=== PATIENT | male | born 1950 | race Caucasian/White ===

== ENCOUNTER 2016-09-25 08:18 | Day surgery (SDC) | payer BC, MEDICARE ==
[~2016-09-25] VITALS: Ht 165.1 cm; Wt 68.8 kg
[~2016-09-25 08:18] MED LIST: AMLO10TA2 PO; ASPI-730 PO; CHOL200026 PO; ENAL20TA76 PO; FISH1CAP29 PO; LIDOCAINE 1% (10mg/ml) 2ml SDV INJ ONE; LR 1,000 ML IV SCH; LUTE10TA2 PO; NIAC500C9 PO
--- OUTSIDE RECORDS SUMMARY | 2016-09-25 08:23 | XMS REPORT | Continuity of Care Document ---
Author Author [facility] Organization [facility] Address Unknown Phone Unavailable Support Name Relationship Address Phone VIRGINIA HANKINS FACS, MD Caregiver [address] [place] [address] [place] [address] [phone] FLORESITA HOOKS MD Caregiver [address] [place] [address] [place] [address] [phone] IRIS COLBERT "JESSICA" Next Of Kin [address] [facility] [place] [id number] Insurance Providers Payer Name Policy Number Subscriber Name Relationship [facility] [id number] Iris Colbert Spouse Advance Directives Directive Response Recorded Date/Time Advanced Directives Type None 11/27/13 3:34pm Dr Gan Resuscitation Status Full Code 11/28/13 1:16pm Problems No known problems or medical conditions. Medications Medication Dose Route Sig Days/Qty Instructions Order Date Discontinued Date Status Aspirin 325 Mg PO .5 tab d 11/27/13 Active Enalapril Maleate 20 Mg PO TWICE A DAY 11/27/13 Active Fish Oil/[place]-3 Fatty Acids 1 Cap PO DAILY 11/27/13 Active Lutein 10 Mg PO DAILY 11/27/13 Active Metoprolol Succinate 12.5 Mg PO TWICE A DAY 11/27/13 Active Niacin 500 Mg PO DAILY 11/27/13 Active Sawpalmtofrtxt/Zinc Picolinate 1 Cap PO DAILY 11/27/13 Active Cholecalciferol (Vitamin D3) 2,000 Unit PO DAILY 11/27/13 Active Vitamin E Mixed 400 Unit PO DAILY 11/27/13 Active Social History Social History Problem Response Recorded Date/Time Smoking Status Never smoker 12/01/2013 10:31am Chewing Tobacco Status No 12/01/2013 10:31am Hx Substance Use No 12/01/2013 10:31am Hx Alcohol Use No 12/01/2013 10:31am Has the pt used tobacco in the last 12 months No 12/01/2013 10:31am Hospital Discharge Instructions No hospital discharge instructions. Plan of Care No plan of care. Functional Status No functional status results. Allergies, Adverse Reactions, Alerts Allergen Type Severity Reaction Status Last Updated Penicillin Allergy Unknown Active 11/27/13 Immunizations Name Given Type Hx Influenza Vaccination Y feb 2013 Historical Hx Pneumococcal Vaccination Y 8 years ago Historical Hx Influenza Vaccination Y feb 2013 Historical Vital Signs Acute Vital Signs Vital Response Date/Time Temperature (Fahrenheit) 98.4 deg F (96.8 - 99.1) Temperature (Calculated Celsius) 36.90424 degrees C (36.0 - 37.3) Temperature Source Temporal Pulse Rate (adult) 60 bpm (60 - 100) Respiratory Rate 16 breaths/min (10 - 20) O2 Sat by Pulse Oximetry 98 % (90 - 100) Blood Pressure 170/83 mm Hg Blood Pressure Source Automatic Cuff Height 5 ft 5 in Weight 134 lb Body Mass Index 22.0 kg/m^2 Results No known relevant diagnostic tests, laboratory data and/or discharge summary. Procedures Procedure Status Date Provider(s) Inguinal hernia repair completed 12/01/13 VIRGINIA HANKINS MD, FACS, CWS
--- OUTSIDE RECORDS SUMMARY | 2016-09-25 08:23 | XMS REPORT | Continuity of Care Document ---
Author Author [facility] Organization [facility] Address Unknown Phone Unavailable Allergies Active Description Code Type Severity Reaction Onset Reported/Identified Relationship to Patient Clinical Status Yes penicillin NKMA N/A N/A 09/11/2013 Medications Problems Procedures Results Test Result Range Urine Drug Screen - 04/01/16 13:51 Tricyclics Not Detected NA Amph/Meth/Ecstasy Negative NA Barbiturates Negative NA Benzodiazepine Negative NA Cannabinoid Negative NA Cocaine Negative NA EDDP (Methadone met.) Negative NA Opiate Negative NA Phencyclidine (PCP) Negative NA Metanephrines, Fract., Random - 04/01/16 13:51 Creatinine 15 mg/dL Metanephrine/Creatinine 120 mcg/g Cr Normetanephrine/Creat 287 mcg/g Cr Tot. Metanephrine/Creat 407 mcg/g Cr Troponin - 04/01/16 17:42 Troponin <0.05 ng/mL <0.06 Basic Metabolic Panel (BMP) - 04/02/16 04:22 Anion Gap 6 NA 3-20 BUN 8 mg/dL 4-20 Calcium 8.8 mg/dL 8.6-10.0 Chloride 103 mEq/L 99-109 CO2 24 mEq/L 22-32 Creatinine 0.67 mg/dL 0.64-1.27 Glucose 99 mg/dL 70-100 Potassium 3.7 mEq/L 3.6-5.1 Sodium 133 mEq/L 136-144 eGFR - 04/02/16 04:22 eGFR >60 NA >60 CBC With Platelet No Differential - 04/02/16 04:22 HCT 43.5 % 42.0-52.0 HGB 14.5 g/dL 14.0-18.0 MCH 29.0 pg 27.0-32.0 MCHC 33.3 g/dL 32.0-36.0 MCV 87.0 fL 82.0-99.0 MPV 9.4 fL 9.4-12.3 Platelet Count 213 K/uL 150-400 RBC 5.00 10*6/uL 4.60-6.20 RDW 14.2 % 11.5-14.5 WBC 8.6 K/uL 4.8-10.8 CBC With Platelet No Differential - 04/03/16 04:05 HCT 43.6 % 42.0-52.0 HGB 14.5 g/dL 14.0-18.0 MCH 28.9 pg 27.0-32.0 MCHC 33.3 g/dL 32.0-36.0 MCV 86.9 fL 82.0-99.0 MPV 9.1 fL 9.4-12.3 Platelet Count 210 K/uL 150-400 RBC 5.02 10*6/uL 4.60-6.20 RDW 13.9 % 11.5-14.5 WBC 9.2 K/uL 4.8-10.8 Basic Metabolic Panel (BMP) - 04/03/16 04:05 Anion Gap 7 NA 3-20 BUN 18 mg/dL 4-20 Calcium 9.0 mg/dL 8.6-10.0 Chloride 96 mEq/L 99-109 CO2 26 mEq/L 22-32 Creatinine 0.79 mg/dL 0.64-1.27 Glucose 104 mg/dL 70-100 Potassium 3.4 mEq/L 3.6-5.1 Sodium 129 mEq/L 136-144 Magnesium - 04/03/16 04:05 Magnesium 1.9 mg/dL 1.8-2.5 eGFR - 04/03/16 04:05 eGFR >60 NA >60 Basic Metabolic Panel (BMP) - 04/13/16 10:45 Anion Gap 10 NA 3-20 BUN 15 mg/dL 8-26 Calcium 9.7 mg/dL 8.9-10.5 Chloride 104 mEq/L 99-111 CO2 26 mEq/L 23-31 Creatinine 0.75 mg/dL 0.72-1.25 Glucose 95 mg/dL 70-99 Potassium 4.1 mEq/L 3.5-5.2 Sodium 140 mEq/L 135-144 eGFR - 04/13/16 10:45 eGFR >60 mL/min >60 Encounters ACCT No. Visit Date/Time Discharge Status Pt. Type Provider Facility Loc./Unit Complaint [id number] 07/14/2013 14:04:00 07/14/2013 23 :59:59 CLS Outpatient
--- OUTSIDE RECORDS SUMMARY | 2016-09-25 08:23 | XMS REPORT | Referral Summary ---
Author Author [facility] Organization [facility] Address Unknown Phone Unavailable Care Team Providers Care Family Development Specialist Name Role Phone Linnea Wild Primary Care Physician [phone] Encounter Date(s): 04/13/16 - 04/13/16 [facility] [address] [place] [address]- Discharge Diagnosis: Left shoulder pain Discharge Diagnosis: Localized swelling, mass or lump of neck Discharge Diagnosis: Hypertension Discharge Disposition: 01-Home or Self Care Attending Physician: Steffany Herrera PA-C Admitting Physician: Steffany Herrera PA-C Vital Signs Most recent to 1 oldest [Reference Range]: Peripheral Pulse 60 bpm Rate [60-100 bpm] (04/13/16 10:18 AM) Respiratory Rate 18 br/min [14-20 br/min] (04/13/16 10:18 AM) Blood Pressure 142/80 mmHg [90-140/60-90 mmHg] *HI* (04/13/16 10:18 AM) Problem List Condition Effective Dates Status Health Status Informant At risk for Active injury(Confirmed)1 BPH (benign Active prostatic hypertrophy)(Confirm ed) Dyslipidemia(Confirm Active ed) Bilateral epididymal Active cysts(Confirmed) Hyperlipidemia(Confi Active rmed) Hypertension(Confirm Active ed) Nephrolithiasis(Conf Active irmed)2 Left Active varicocele(Confirmed ) Tissue perfusion Active alteration(Confirmed )3 1Problem added automatically by system based on initiation of Risk for Injury Plan of Care 2pass spontaneously 3Problem added automatically by system based on initiation of Tissue Perfusion Cerebral Plan of Care Allergies, Adverse Reactions, Alerts Substance Reaction Severity Status penicillin Active Medications amLODIPine 10 mg oral tablet 10 mg 1 tabs, Oral, Daily, # 90 tabs, 1 Refill(s), Pharmacy: [facility], 1 tabs Oral Daily Start Date: 04/13/16 Status: Ordered aspirin 325 mg oral tablet 162.5 mg 0.5 tabs, Oral, Daily, may resume only after bruising and swelling resolved and ok with PCP, 0 Refill(s) Start Date: 04/01/16 Status: Ordered enalapril 20 mg oral tablet 20 mg 1 tabs, Oral, BID, # 180 tabs, 1 Refill(s), Pharmacy: [facility], 1 tabs Oral BID Start Date: 11/01/15 Status: Ordered Fish Oil 1000 mg oral capsule 1 caps, Oral, Daily, 0 Refill(s) Start Date: 11/11/13 Status: Ordered lutein 10 mg, Oral, Daily, 0 Refill(s) Start Date: 11/11/13 Status: Ordered niacin 500 mg oral tablet 500 mg 1 tabs, Oral, Bedtime (once a day), 0 Refill(s) Start Date: 11/11/13 Status: Ordered Vitamin D3 2000 intl units oral tablet 2,000 Intl_Units 1 tabs, Oral, BID, 0 Refill(s) Start Date: 11/11/13 Status: Ordered Results Chemistry Most recent to 1 oldest [Reference Range]: Sodium Lvl [135-144 140 mEq/L mEq/L] (04/13/16 10:45 AM) Potassium Lvl 4.1 mEq/L [3.5-5.2 mEq/L] (04/13/16 10:45 AM) Chloride [99-111 104 mEq/L mEq/L] (04/13/16 10:45 AM) CO2 [23-31 mEq/L] 26 mEq/L (04/13/16 10:45 AM) AGAP [3-20] 10 (04/13/16 10:45 AM) BUN [8-26 mg/dL] 15 mg/dL (04/13/16 10:45 AM) Glucose Lvl [70-99 95 mg/dL mg/dL] (04/13/16 10:45 AM) Creatinine Lvl 0.75 mg/dL [0.72-1.25 mg/dL] (04/13/16 10:45 AM) eGFR [>60 mL/min] >60 mL/min 1 (04/13/16 10:45 AM) Calcium Lvl 9.7 mg/dL [8.9-10.5 mg/dL] (04/13/16 10:45 AM) 1Result Comment: Multiply eGFR results by 1.21 for race. Immunizations Vaccine Date Refusal Reason tetanus/diphth/pertuss (Tdap) adult/adol 12/26/11 hepatitis A adult vaccine 10/21/96 influenza virus vaccine, inactivated1 04/03/16 influenza virus vaccine, inactivated 03/01/15 influenza virus vaccine, live 02/28/12 poliovirus vaccine, inactivated 10/21/96 tetanus-diphth toxoids (Td) adult/adol 05/29/01 zoster vaccine live 02/28/12 1Result Comment: exp 10/12/2016 Procedures Procedure Date Related Diagnosis Body Site Collection of venous blood by venipuncture 04/13/16 Repair of inguinal hernia1 12/01/13 Colonoscopy2 09/24/06 Repair of inguinal hernia3 1954 Circumcision (at ) 1950 Vasectomy 1Right, with mesh 2diverticula, repeat in 10 years 3left Social History Social History Type Response Smoking Status Never smoker Assessment and Plan Extracted from: Title: Office Visit Note- Hospital Author: Steffany Herrera PA-C Date : 04/13/16 F/U, HTN Assessment/Plan Hypertension Will recheck BMP today, as his last labs on 04/03 showed some hyponatremia and hypokalemia. Pt is advised to continue on Enalapril and Norvasc for now at current doses. I did refill the Norvasc today. Continue to check the BP 1-2 times daily, and RTC if BP is consistently >150/90. If needed, could add the Metoprolol back on, but at the 12.5mg dose. Not sure if he would do well with a diuretic (HCTZ) as this was tried in the hospital, and it dropped his Na and K+. If no issues, advised to recheck in clinic in 3 months. Ordered: amLODIPine, 10 mg 1 tabs, Oral, Daily, # 90 tabs, 1 Refill(s), Pharmacy: [facility], 1 tabs Oral Daily Basic Metabolic Panel Trans [facility] 14 Day Disch 67092 Left shoulder pain D/w pt that he have a rotator cuff strain or partial tear. Could try PT if continuing with pain.Ptis to let us know. Ordered: [facility] 14 Day Disch 45564 Localized swelling, mass or lump of neck This is improving. Still unknown why this occurred. Continue to monitor the area. Ordered: Trans [facility] 14 Day Disch [id number]
--- OUTSIDE RECORDS SUMMARY | 2016-09-25 08:23 | XMS REPORT | Referral Summary ---
Author Author [facility] Organization [facility] Address Unknown Phone Unavailable Care Team Providers Care Ear Nose Throat Physician Name Role Phone Linnea Wild Primary Care Physician [phone] Encounter Date(s): 03/31/16 - 03/31/16 [facility] [address] [place] [address]- Discharge Diagnosis: Localized soft tissue swelling Discharge Diagnosis: Neck and shoulder pain Discharge Diagnosis: Accidental fall Discharge Disposition: 01-Home or Self Care Attending Physician: Steffany Herrera PA-C Admitting Physician: Steffany Herrera PA-C Vital Signs Most recent to 1 oldest [Reference Range]: Peripheral Pulse 52 bpm Rate [60-100 bpm] *LOW* (03/31/16 3:38 PM) Blood Pressure 128/84 mmHg [90-140/60-90 mmHg] (03/31/16 3:38 PM) SpO2 98 % (03/31/16 3:38 PM) Problem List Condition Effective Dates Status Health Status Informant BPH (benign Active prostatic hypertrophy)(Confirm ed) Dyslipidemia(Confirm Active ed) Bilateral epididymal Active cysts(Confirmed) Hyperlipidemia(Confi Active rmed) Hypertension(Confirm Active ed) Nephrolithiasis(Conf Active irmed)1 Left Active varicocele(Confirmed ) 1pass spontaneously Allergies, Adverse Reactions, Alerts Substance Reaction Severity Status penicillin Active Medications aspirin 162 mg, Oral, Daily, 0 Refill(s) Start Date: 11/11/13 Status: Ordered enalapril 20 mg oral tablet 20 mg 1 tabs, Oral, BID, # 180 tabs, 1 Refill(s), Pharmacy: [facility], 1 tabs Oral BID Start Date: 11/01/15 Status: Ordered Fish Oil 1000 mg oral capsule 1 caps, Oral, Daily, 0 Refill(s) Start Date: 11/11/13 Status: Ordered lutein 10 mg, Oral, Daily, 0 Refill(s) Start Date: 11/11/13 Status: Ordered Metoprolol Succinate ER 25 mg oral tablet, extended release See Instructions, TAKE 1 TABLET DAILY, # 30 tabs, 3 Refill(s), eRx: [facility], TAKE 1 TABLET DAILY Start Date: 03/10/16 Status: Ordered niacin 500 mg oral tablet 1 tabs, Oral, Daily, 0 Refill(s) Start Date: 11/11/13 Status: Ordered Vitamin D3 2000 intl units oral tablet 2 tabs, Oral, Daily, 0 Refill(s) Start Date: 11/11/13 Status: Ordered Results No data available for this section Immunizations Vaccine Date Refusal Reason tetanus/diphth/pertuss (Tdap) adult/adol 12/26/11 hepatitis A adult vaccine 10/21/96 influenza virus vaccine, inactivated 03/01/15 influenza virus vaccine, live 02/28/12 poliovirus vaccine, inactivated 10/21/96 tetanus-diphth toxoids (Td) adult/adol 05/29/01 zoster vaccine live 02/28/12 Procedures Procedure Date Related Diagnosis Body Site Repair of inguinal hernia1 12/01/13 Colonoscopy2 09/24/06 Repair of inguinal hernia3 1954 Circumcision (at ) 1950 Vasectomy 1Right, with mesh 2diverticula, repeat in 10 years 3left Social History Social History Type Response Smoking Status Never smoker Assessment and Plan Extracted from: Title: Office Visit Note- Neck Author: Steffany Herrera PA-C Date: swelling and pain Assessment/Plan Accidental fall This happened a month ago, and I'm not sure if this is related to his current issue, but it may given he had fallen on this side of the body. Ordered: Office Visit Level 5 Est 07390 Localized soft tissue swelling I had Dr. Wild look at this, as Ibelieved it was quite concerning.He had recommended a CT of the soft tissue andCXR stat. However, with his insurance, he may need a pre-cert for the CT, needs labs to check BUN/Cr, and IV contrast. Since it is at the end of the day, and also very concerning, Iadvised the pt corey seen in the ED forfurther work up. Pt was agreeable.I'm not sure if he has ruptured a vessel or tendon or muscle; or if this could be a thrombus. Will f/u with pt after being seen in the ED. Ordered: Office Visit Level 5 Est 45554 Neck and shoulder pain See above. Ordered: Office Visit Level 5 Est 56401
--- OUTSIDE RECORDS SUMMARY | 2016-09-25 08:23 | XMS REPORT | Referral Summary ---
Author Author [facility] Organization [facility] Address Unknown Phone Unavailable Care Team Providers Care Milk Sampler Name Role Phone Linnea Wild Primary Care Physician [phone] Encounter VC Date(s): 06/15/16 - 06/15/16 [facility] [address] [place] [address]- Discharge Diagnosis: Acute URI Discharge Diagnosis: Cough Discharge Disposition: 01-Home or Self Care Attending Physician: Steffany Herrera PA-C Admitting Physician: Steffany Herrera PA-C Vital Signs Most recent to 1 oldest [Reference Range]: Temperature Tympanic 36.9 degC [36.6-38.1 degC] (06/15/16 1:09 PM) Peripheral Pulse 68 bpm Rate [60-100 bpm] (06/15/16 1:09 PM) Blood Pressure 116/60 mmHg [90-140/60-90 mmHg] (06/15/16 1:09 PM) Problem List Condition Effective Dates Status [facility], 1 tabs Oral Daily Start Date: 04/13/16 Status: Ordered aspirin 325 mg oral tablet 162.5 mg 0.5 tabs, Oral, Daily, may resume only after bruising and swelling resolved and ok with PCP, 0 Refill(s) Start Date: 04/01/16 Status: Ordered enalapril 20 mg oral tablet See Instructions, TAKE 1 TABLET TWICE A DAY, # 180 tabs, eRx: [facility] Start Date: 04/28/16 Status: Ordered Fish Oil 1000 mg oral capsule 1 caps, Oral, Daily, 0 Refill(s) Start Date: 11/11/13 Status: Ordered lutein 10 mg, Oral, Daily, 0 Refill(s) Start Date: 11/11/13 Status: Ordered Mucinex See Instructions, TAKING FOR CONGESTION, 0 Refill(s) Start Date: 06/15/16 Status: Ordered niacin 500 mg oral tablet 500 mg 1 tabs, Oral, Bedtime (once a day), 0 Refill(s) Start Date: 11/11/13 Status: Ordered promethazine-codeine 6.25 mg-10 mg/5 mL oral syrup 5 mL, Oral, q6hr, as needed for cough, not to exceed 30 mL/24 hours [facility], # 120 mL, 0 Refill(s) Start Date: 06/15/16 Status: Ordered Vitamin D3 2000 intl units oral tablet 2,000 Intl_Units 1 tabs, Oral, BID, 0 Refill(s) Start Date: 11/11/13 Status: Ordered Results No data available for this section Immunizations Given and Recorded Vaccine Date Status Refusal Reason tetanus/diphth/pertuss (Tdap) adult/adol 12/26/11 Recorded hepatitis A adult vaccine 10/21/96 Recorded influenza virus vaccine, inactivated1 04/03/16 Given influenza virus vaccine, inactivated 03/01/15 Given influenza virus vaccine, live 02/28/12 Given poliovirus vaccine, inactivated 10/21/96 Given tetanus-diphth toxoids (Td) adult/adol 05/29/01 Given zoster vaccine live 02/28/12 Given 1Result Comment: exp 10/12/2016 Procedures Procedure Date Related Diagnosis Body Site Repair of inguinal hernia1 12/01/13 Colonoscopy2 09/24/06 Repair of inguinal hernia3 1954 Circumcision (at ) 1950 Vasectomy 1Right, with mesh 2diverticula, repeat in 10 years 3left Social History Social History Type Response Smoking Status Never smoker Assessment and Plan Extracted from: Title: Office Visit Note- URI Author: Steffany Herrera PA-C Date: Assessment/Plan Acute URI D/t pt that this appears viral at this time. Rest and push fluids. May use sx tx. Recommended Flonase nasal spray for nasal congestion and sinus pressure. Call next week if sinus pressure is worsening for abx. Ordered: Office Visit Level 3 Est 97545 Cough Prescribed Prometh/codeine for cough. Warned of possible drowsiness. Ordered: promethazine-codeine, 5 mL, Oral, q6hr, as needed for cough, not to exceed 30 mL/24 hours [facility], # 120 mL, 0 Refill(s) Office Visit Level 3 Est 33132
--- OUTSIDE RECORDS SUMMARY | 2016-09-25 08:23 | XMS REPORT | Referral Summary ---
Author Author [facility] Organization [facility] Address Unknown Phone Unavailable Care Team Providers Care Pipe Joints Supervisor Name Role Phone Linnea Wild Primary Care Physician [phone] Encounter Date(s): 03/01/16 - 03/01/16 [facility] [address] [place] [address]- Discharge Diagnosis: Acute pain of left shoulder Discharge Diagnosis: Accidental fall Discharge Disposition: 01-Home or Self Care Attending Physician: Steffany Herrera PA-C Admitting Physician: Steffany Herrera PA-C Vital Signs Most recent to 1 oldest [Reference Range]: Peripheral Pulse 64 bpm Rate [60-100 bpm] (03/01/16 3:00 PM) Respiratory Rate 16 br/min [14-20 br/min] (03/01/16 3:00 PM) Problem List Condition Effective Dates Status [...] BID, # 180 tabs, 1 Refill(s), Pharmacy: [facility], 1 tabs Oral BID Start Date: 11/01/15 Status: Ordered Fish Oil 1000 mg oral capsule 1 caps, Oral, Daily, 0 Refill(s) Start Date: 11/11/13 Status: Ordered lutein 10 mg, Oral, Daily, 0 Refill(s) Start Date: 11/11/13 Status: Ordered Metoprolol Succinate ER 25 mg oral tablet, extended release See Instructions, TAKE 1 TABLET DAILY, # 30 tabs, 4 Refill(s), eRx: [facility], TAKE 1 TABLET DAILY Start Date: 12/13/15 Status: Ordered Mobic 7.5 mg oral tablet 7.5 mg 1 tabs, Oral, BID, # 60 tabs, 2 Refill(s), Pharmacy: [id number], 1 tabs Oral BID Start Date: 10/19/15 Status: Ordered niacin 500 mg oral tablet 1 tabs, Oral, Daily, 0 Refill(s) Start Date: 11/11/13 Status: Ordered saw palmetto oral capsule 1 tabs, Oral, Daily, 0 Refill(s) Start Date: 11/11/13 Status: Ordered Vitamin D3 2000 intl units oral tablet 2 tabs, Oral, Daily, 0 Refill(s) Start Date: 11/11/13 Status: Ordered vitamin E 400 intl units oral capsule 1 caps, Oral, Daily, # 100 caps, 0 Refill(s) Start Date: 11/11/13 Status: Ordered [...] Plan Extracted from: Title: Office Visit Note- Fall, L Author: Steffany Herrera PA-C Date: 03/01/16 shoulder pain Assessment/Plan Accidental fall His other injuries appear to be mild and not concerning to the pt. Monitor for anyworsening. Ordered: Office Visit Level 3 Est 13500 Acute pain of left shoulder The x-rays appear to be normal, although I did suspect an AC separation. Will wait for formal radiology read. If the formal read is normal, then probably just a contusion/sprain. He is to rest the arm, use ice, take Advil/Aleve for pain, and do gentle ROM exercises. Should improve in about 2 weeks. If he starts to experience more pain, weakness to the arm, or loss of ROM, he is to RTC for re-evaluation and possibly MRI. Pt voiced understanding and agreed with plan. Ordered: Office Visit Level 3 Est 01820 XR AC Joints Bilateral w/ wts XR Shoulder Complete Left
--- OUTSIDE RECORDS SUMMARY | 2016-09-25 08:23 | XMS REPORT | Continuity of Care Document ---
Author Author [facility] Organization [facility] Address Unknown Phone Unavailable Support Name Relationship Address Phone CARMINE ALEXIS MD Caregiver [address] [address] Unavailable FLORESITA HOOKS MD Caregiver [address] [place] [address] Unavailable IRIS COLBERT "JESSICA" Next Of Kin [address] [facility] [place], [place] [id number] Insurance Providers Guarantor Evon Colbert Address [address] [facility] [place] [address] Email [email or web address] [email or web address] Policy Number [id number] Subscriber's Name Iris Colbert Relationship 01 Spouse Group Number [id number] Chief Complaint and Reason for Visit Chief Complaint Neck Pain Reason for Visit Contusion of neck Problems Active Problems Medical Problem Onset Date Status Contusion of neck Unknown Acute Medications Current Home Medications Medication Dose Units Route Directions Days Qty Instructions Start Date Aspirin 325 Mg Tablet 325 Mg Oral .5 Tab D 11/27/13 Cholecalciferol (Vitamin D3) (Vitamin D-3) 2,000 Unit Capsule 2,000 Unit Oral Daily 11/27/13 Enalapril Maleate 20 Mg Tablet 20 Mg Oral Twice A Day 11/27/13 Fish Oil/[place]-3 Fatty Acids (Fish Oil 1,000 Mg Capsule) 1 Cap Capsule 1 Cap Oral Daily 11/27/13 Lutein 10 Mg Tablet 10 Mg Oral Daily 11/27/13 Metoprolol Succinate 25 Mg Tab.sr.24h 12.5 Mg Oral Twice A Day Niacin 500 Mg Capsule.sa 500 Mg Oral Daily 11/27/13 Sulfamethoxazole/Trimethoprim (Bactrim Ds Tablet) 1 Each Tablet 1 Tab Oral Twice A Day 20 Tablet Take 1 tablet, by mouth, 2 times a day. 03/31/16 Social History Social History Problem Response Recorded Date/Time Onset Date Status Hx Substance Use No 03/31/2016 4:32pm Not Applicable Not Applicable Hx Alcohol Use No 03/31/2016 4:32pm Not Applicable Not Applicable Has the pt used tobacco in the last 12 months No 12/01/2013 10:31am Not Applicable Not Applicable Query Response Start Date Stop Date Smoking Status Never smoker Hospital Discharge Instructions No hospital discharge instructions. Plan of Care Discharge Date 03/31/16 6:55pm Disposition 01 DISCHARGED HOME, SELF-CARE Condition at Discharge Stable Instructions/Education Provided DI for Contusion Prescriptions See Medication Section Referrals FLORESITA HOOKS MD Address: [address] [place] [address] [place] [phone] Additional Instructions/Education I do want you to take the Bactrim as prescribed. May ice the area as needed for pain and swelling. I do want you to follow up with your primary care provider on Sunday for reevaluation but return to ER over the weekend with any increased significant swelling, fever, or difficulty breathing or painful swallowing. Ibuprofen and/or Tylenol as needed for pain. Care Plan and Goals Physician Care Plan Problem:Contusion of neck Goal: Follow up with primary care provider Instructions: Take medications and follow care plan as discussed/written Functional Status No functional status results. Allergies, Adverse Reactions, Alerts Allergen Type Severity Reaction Status Last Updated Penicillin Allergy Unknown SWELLING AND RASH Active 03/31/16 Immunizations Query Response on File Recorded Date/Time Hx Influenza Vaccination Y feb 2013 12/01/13 10:31am Hx Pneumococcal Vaccination Y 8 years ago 12/01/13 10:31am Hx Influenza Vaccination Y feb 2013 12/01/13 10:31am Vital Signs Acute Vital Signs Vital Response Date/Time Temperature (Fahrenheit) 98.3 deg F (96.8 - 99.1) 03/31/2016 6:55pm Temperature (Calculated Celsius) 36.13862 degrees C (36.0 - 37.3) 03/31/2016 6:55pm Pulse Rate (adult) 58 bpm (60 - 100) 03/31/2016 6:55pm Respiratory Rate 16 breaths/min (10 - 20) 03/31/2016 6:55pm O2 Sat by Pulse Oximetry 97 % (90 - 100) 03/31/2016 6:55pm Blood Pressure 158/86 mm Hg 03/31/2016 6:55pm Height (Feet) 5 feet 03/31/2016 4:15pm Height (Inches) 5.00 inches 03/31/2016 4:15pm Weight (Kilograms) 70.900 kg 03/31/2016 4:15pm Body Mass Index (BMI) 26.0 03/31/2016 4:15pm Results Laboratory Results Test Name Result Units Flags Reference Collection Date/Time Result Date/ Time Comments White Blood Count 9.4 T/MM3 4.5-11.0 03/31/2016 4:46pm 03/31/2016 4: 52pm Red Blood Count 5.15 M/MM3 4.50-5.90 03/31/2016 4:46pm 03/31/2016 4: 52pm Hemoglobin 14.8 GM/DL 13.5-17.5 03/31/2016 4:46pm 03/31/2016 4:52pm Hematocrit 44.8 % 41-53 03/31/2016 4:46pm 03/31/2016 4:52pm Mean Corpuscular Volume 87.0 UM3 80-100 03/31/2016 4:46pm 03/31/2016 4: 52pm Mean Corpuscular Hemoglobin 28.7 UUG 26-34 03/31/2016 4:46pm 2015 4:52pm Mean Corpuscular Hemoglobin Concent 33.0 GM/DL 31-37 03/31/2016 4:46pm 03/31/2016 4:52pm RDW Standard Deviation 43.3 FL 36.9-50.2 03/31/2016 4:46pm 03/31/2016 4 :52pm Platelet Count 215 T/MM3 130-400 03/31/2016 4:46pm 03/31/2016 4:52pm Mean Platelet Volume 9.0 UM3 L 9.4-12.4 03/31/2016 4:46pm 03/31/2016 4: 52pm Neutrophils (%) (Auto) 56.5 % 33-66 03/31/2016 4:46pm 03/31/2016 4: 52pm Lymphocytes (%) (Auto) 31.1 % 23-45 03/31/2016 4:46pm 03/31/2016 4: 52pm Monocytes (%) (Auto) 9.8 % H 0-9.0 03/31/2016 4:46pm 03/31/2016 4:52pm Eosinophils (%) (Auto) 2.1 % 0-4 03/31/2016 4:46pm 03/31/2016 4:52pm Basophils (%) (Auto) 0.4 % 0-2 03/31/2016 4:46pm 03/31/2016 4:52pm Immature Granulocyte % (Auto) 0.1 % 0.0-0.5 03/31/2016 4:46pm 2015 4:52pm Absolute Neutrophils (auto) 5.3 T/MM3 1.8-7.7 03/31/2016 4:46pm 2015 4:52pm Absolute Lymphocytes (auto) 2.9 T/MM3 1-4.8 03/31/2016 4:46pm 2015 4:52pm Absolute Monocytes (auto) 0.9 T/MM3 H 0-0.8 03/31/2016 4:46pm 2015 4:52pm Absolute Eosinophils (auto) 0.2 T/MM3 0-0.5 03/31/2016 4:46pm 2015 4:52pm Absolute Basophils (auto) 0.0 T/MM3 0-0.2 03/31/2016 4:46pm 03/31/2016 4:52pm Absolute Immature Granulocyte (auto 0.01 T/MM3 0.00-0.03 03/31/2016 4: 46pm 03/31/2016 4:52pm Icterus Index < 2 0-7 03/31/2016 4:46pm 03/31/2016 5:03pm Chemistry Specimen Hemolysis < 15 0-25 03/31/2016 4:46pm 03/31/2016 5 :03pm 0-25: Specimen Exhibited No Hemolysis. Turbidity < 20 0-20 03/31/2016 4:46pm 03/31/2016 5:03pm Sodium Level 138 MEQ/L 134-144 03/31/2016 4:46pm 03/31/2016 5:03pm Potassium Level 3.7 MEQ/L 3.6-5 03/31/2016 4:46pm 03/31/2016 5:03pm Chloride Level 98 MEQ/L 98-107 03/31/2016 4:46pm 03/31/2016 5:03pm Carbon Dioxide Level 28 MEQ/L 22-30 03/31/2016 4:46pm 03/31/2016 5: 03pm Anion Gap 12 MEQ/L 5-15 03/31/2016 4:46pm 03/31/2016 5:03pm Blood Urea Nitrogen 15.0 MG/DL 9-20 03/31/2016 4:46pm 03/31/2016 5: 03pm Creatinine 0.7 MG/DL L 0.8-1.5 03/31/2016 4:46pm 03/31/2016 5:03pm BUN/Creatinine Ratio 21 RATIO 6-26 03/31/2016 4:46pm 03/31/2016 5:03pm Glomerular Filtration Rate Calc 113 03/31/2016 4:46pm 03/31/2016 5: 03pm Glucose Level 94 MG/DL 75-110 03/31/2016 4:46pm 03/31/2016 5:03pm Calculated Osmolality 267 MOSM/KG 261-280 03/31/2016 4:46pm 03/31/2016 5:03pm Calcium Level 9.2 MG/DL 8.4-10.2 03/31/2016 4:46pm 03/31/2016 5:03pm Procedures No known history of procedures. Encounters Encounter Location Arrival/Admit Date Discharge/Depart Date Attending Provider Registered Emergency Room [facility] 03/31/16 4:12pm CARMINE ALEXIS MD Recent Diagnosis
--- OUTSIDE RECORDS SUMMARY | 2016-09-25 08:23 | XMS REPORT | Referral Summary ---
Author Author [facility] Organization [facility] Address Unknown Phone Unavailable Care Team Providers Care Line Fixer Name Role Phone Linnea Wild Primary Care Physician [phone] Encounter VC Date(s): 03/31/16 - 04/03/16 [facility] [address] [place] [address] Discharge Disposition: 01-Home or Self Care Attending Physician: Suha Tomas DO Admitting Physician: Sue Gee MD Vital Signs Most recent to 1 oldest [Reference Range]: Temperature Temporal 36.5 degC Artery [36.3-37.8 (04/03/16 12:00 PM) degC] Peripheral Pulse 65 bpm Rate [60-100 bpm] (04/02/16 7:51 PM) Heart Rate Monitored 71 bpm [60-100 bpm] (04/03/16 2:00 PM) Respiratory Rate 27 br/min [14-20 br/min] *HI* (04/03/16 2:00 PM) Blood Pressure 153/93 mmHg [90-140/60-90 mmHg] *HI* (04/03/16 2:00 PM) Mean Arterial 119 mmHg Pressure, Cuff (04/03/16 2:00 PM) SpO2 98 % (04/03/16 2:00 PM) Remote Telemetry Ongoing (04/01/16 8:00 PM) Problem List Condition Effective Dates Status [...] 10 mg 1 tabs, Oral, Daily, # 30 tabs, 0 Refill(s), Pharmacy: [id number], 1 tabs Oral Daily Start Date: 04/03/16 Status: Ordered aspirin 325 mg oral tablet 162.5 mg 0.5 tabs, Oral, Daily, may resume only after bruising and swelling resolved and ok with PCP, 0 Refill(s) Start Date: 04/01/16 Status: Ordered enalapril 20 mg oral tablet 20 mg 1 tabs, Oral, BID, # 180 tabs, 1 Refill(s), Pharmacy: [facility], 1 tabs Oral BID Start [...] Refill(s) Start Date: 11/11/13 Status: Ordered Results Hematology Most recent to 1 oldest [Reference Range]: WBC [4.8-10.8 9.2 10*3/uL 10*3/uL] (04/03/16 4:05 AM) RBC [4.60-6.20] 5.02 (04/03/16 4:05 AM) Hgb [14.0-18.0 14.5 gm/dL gm/dL] (04/03/16 4:05 AM) Hct [42.0-52.0 %] 43.6 % (04/03/16 4:05 AM) MCV [82.0-99.0 fL] 86.9 fL (04/03/16 4:05 AM) MCH [27.0-32.0 pg] 28.9 pg (04/03/16 4:05 AM) MCHC [32.0-36.0 33.3 gm/dL gm/dL] (04/03/16 4:05 AM) RDW [11.5-14.5 %] 13.9 % (04/03/16 4:05 AM) Platelet [150-400 210 10*3/uL 10*3/uL] (04/03/16 4:05 AM) MPV [9.4-12.3 fL] 9.1 fL *LOW* (04/03/16 4:05 AM) Immature 0.2 % Granulocytes (03/31/16 11:15 PM) [0.0-1.0 %] Neutrophils [51-75 71 % %] (03/31/16 11:15 PM) Lymphocytes [20-46 18 % %] *LOW* (03/31/16 11:15 PM) Monocytes [4-11 %] 11 % (03/31/16 11:15 PM) Eosinophils [0-4 %] 1 % (03/31/16 11:15 PM) Basophils [0-2 %] 0 % (03/31/16 11:15 PM) Neutro Absolute 7.43 10*3 [1.90-7.00 10*3] *HI* (03/31/16 11:15 PM) Lymph Absolute 1.86 10*3 [0.80-3.30 10*3] (03/31/16 11:15 PM) Rolette Absolute 1.12 10*3 [0.30-1.00 10*3] *HI* (03/31/16 11:15 PM) Eos Absolute 0.05 10*3 [0.00-0.50 10*3] (03/31/16 11:15 PM) Baso Absolute 0.03 10*3 [0.00-0.20 10*3] (03/31/16 11:15 PM) Nucleated RBC 0.0 /100 WBC Automated [0 /100 (03/31/16 11:15 PM) WBC] Coagulation Most recent to 1 oldest [Reference Range]: INR [0.9-1.2] 1.0 (03/31/16 11:15 PM) Chemistry Most recent to 1 oldest [Reference Range]: Sodium Lvl [136-144 129 mEq/L mEq/L] *LOW* (04/03/16 4:05 AM) Potassium Lvl 3.4 mEq/L [3.6-5.1 mEq/L] *LOW* (04/03/16 4:05 AM) Chloride [99-109 96 mEq/L mEq/L] *LOW* (04/03/16 4:05 AM) CO2 [22-32 mEq/L] 26 mEq/L (04/03/16 4:05 AM) AGAP [3-20] 7 (04/03/16 4:05 AM) BUN [4-20 mg/dL] 18 mg/dL (04/03/16 4:05 AM) Glucose Lvl [70-100 104 mg/dL mg/dL] *HI* (04/03/16 4:05 AM) Creatinine Lvl 0.79 mg/dL [0.64-1.27 mg/dL] (04/03/16 4:05 AM) eGFR [>60] >60 1 (04/03/16 4:05 AM) Calcium Lvl 9.0 mg/dL [8.6-10.0 mg/dL] (04/03/16 4:05 AM) Albumin Lvl [3.5-4.8 4.5 gm/dL gm/dL] (03/31/16 11:15 PM) Total Protein 7.7 gm/dL [6.1-7.9 gm/dL] (03/31/16 11:15 PM) Globulin [1.9-4.3 3.2 gm/dL gm/dL] (03/31/16 11:15 PM) ALT [17-63 U/L] 29 U/L (03/31/16 11:15 PM) AST [15-41 U/L] 42 U/L *HI* (03/31/16 11:15 PM) Alk Phos [26-104 77 U/L U/L] (03/31/16 11:15 PM) Bili Total [0.2-1.2 1.2 mg/dL 2 mg/dL] (03/31/16 11:15 PM) Magnesium Lvl 1.9 mg/dL [1.8-2.5 mg/dL] (04/03/16 4:05 AM) Troponin [<0.06 <0.05 ng/mL ng/mL] (04/01/16 5:42 PM) Sodium Venous 139 mEq/L [136-144 mEq/L] (03/31/16 11:13 PM) Potassium Venous 3.3 mEq/L 3 [3.6-5.1 mEq/L] *LOW* (03/31/16 11:13 PM) Calcium Ionized 1.19 mmol/L Venous [1.19-1.41 (03/31/16 11:13 PM) mmol/L] Total CO2 Venous 26 mEq/L [25-29 mEq/L] (03/31/16 11:13 PM) HGB Venous NPT 17.7 gm/dL [14.0-16.0 gm/dL] *HI* (03/31/16 11:13 PM) HCT Venous 52.0 % [42.0-52.0 %] (03/31/16 11:13 PM) Glucose Venous 112 mg/dL [70-100 mg/dL] *HI* (03/31/16 11:13 PM) BUN Venous [4-20] 15 (03/31/16 11:13 PM) Creatinine Venous 0.7 mg/dL [0.7-1.2 mg/dL] (03/31/16 11:13 PM) Venous CL [99-109 100 mEq/L mEq/L] (03/31/16 11:13 PM) Anion Gap, Pedro 13 [3-20] (03/31/16 11:13 PM) Troponin-POC Negative (03/31/16 11:11 PM) 1Result Comment: Multiply eGFR results by 1.21 for race. 2Result Comment: Naproxen, specifically the metabolite O-desmethylnaproxen, may cause spurious elevation in Total Bilirubin levels. 3Result Comment: This test was performed on a whole blood specimen. The presence or absence of hemolysis cannot be assessed. Hemolysis can falsely elevate potassium levels. Normals are for venous specimens only. Toxicology Most recent to 1 oldest [Reference Range]: U Amphetamine Scrn Negative (04/01/16 1:51 PM) U Cocaine Scrn Negative (04/01/16 1:51 PM) U Cannab Scrn Negative (04/01/16 1:51 PM) U Opiate Scrn Negative (04/01/16 1:51 PM) U PCP Scrn Negative (04/01/16 1:51 PM) U Benzodiazepine Negative Scrn (04/01/16 1:51 PM) U Barbiturate Scrn Negative (04/01/16 1:51 PM) Methadone Lvl Negative (04/01/16 1:51 PM) Tricyclics Not Detected 1 (04/01/16 1:51 PM) 1Result Comment: Cut-off concentrations: Amphetamines: 1000 ng/mL Cocaine: 300 ng/mL Cannabinoid: 50 ng/mL Opiate: 300 ng/mL Phencyclidine (PCP): 25 ng/mL Benzodiazepine: 200 ng/mL Barbiturate: 200 ng/mL Methadone: 300 ng/mL Tricyclic: 300 ng/mL The urine drug screen assays are qualitative screens. A more specific GC/MS method must be performed to obtain a confirmed analytical result. Unconfirmed screening results must not be used for non-medical purposes(e.g. employment or legal testing) Immunizations Vaccine Date Refusal Reason tetanus/diphth/pertuss (Tdap) [...] Smoking Status Never smoker Assessment and Plan No data available for this section
--- OUTSIDE RECORDS SUMMARY | 2016-09-25 08:23 | XMS REPORT | Referral Summary ---
Author Author [facility] Organization [facility] Address Unknown Phone Unavailable Care Team Providers Care Repack Room Worker Name Role Phone Linnea Wild Primary Care Physician [phone] Encounter VC Date(s): 03/06/16 - 03/06/16 [facility] [address] [place] [address] LI[place] G[place] [id number]- Discharge Diagnosis: Bilateral epididymal cysts Discharge Diagnosis: BPH (benign prostatic hypertrophy) Discharge Disposition: 01-Home or Self Care Attending Physician: Micha Minor MD Admitting Physician: Micha Minor MD Vital Signs Most recent to 1 oldest [Reference Range]: Peripheral Pulse 60 bpm Rate [60-100 bpm] (03/06/16 3:23 PM) Blood Pressure 154/90 mmHg [90-140/60-90 mmHg] *HI* (03/06/16 3:23 PM) Problem List Condition Effective Dates Status [...] BID, # 180 tabs, 1 Refill(s), Pharmacy: [facility], 1 tabs Oral BID Start [...] TABLET DAILY Start Date: 12/13/15 Status: Ordered niacin 500 mg oral tablet [...] and Plan Extracted from: Title: Office Visit Note Author: Micha Minor MD Date: 03/06/16 Assessment/Plan Bilateral epididymal cysts Asymptomatic. I do not thinkhe needs any further ultrasound surveillance unless he has any change in symptomsor increase in size. BPH (benign prostatic hypertrophy) Not on any medications. Symptoms have been stable. He'll follow-up with me in a year with a PSA 1 week prior. Should he have any worsening of his symptoms prior to thathe'll see me at that point.
[2016-09-25 08:29] VITALS: BP 156/85; PULSE 58; RESP 13; TEMP 98.4; O2SAT 99; Ht 165.1 cm; Wt 68.8 kg
--- NOTE | 2016-09-25 11:15 | ANESPREOP ---
Anesthesia Record Date and Time DATE: 09/25/16 TIME: 11:12 Pre-Op Diagnosis family hx. of colon ca Proposed Surgical Procedure COLONOSCOPY Allergies: Coded Allergies: Penicillins (Unverified Allergy, Unknown, SWELLING AND RASH, 09/25/16) Ht/Wt/BMI Height: 5 ' 5.00 " Weight: 68.800 kg BMI: 25.2 kg/m2 Vital Signs Date Time Temp Pulse Resp B/P Pulse Ox O2 Delivery O2 Flow Rate FiO2 09/25/16 08:29 98.4 58 13 156/85 99 Room Air Medications Inpatient Medications Current Medications Medications (Trade) Dose Ordered Sig/Jono Start Time Stop Time Status Last Admin Dose Admin Lactated Ringer's (Lactated Ringers) 1,000 ml @ 30 mls/hr Q24H 09/25/16 07:00 09/25/16 08:52 30 MLS/HR Amlodipine Besylate (Amlodipine Besylate) 10 Mg Tablet, 1 TAB PO DAILY, ( Reported) Last Taken: on 09/25/16 0730 Aspirin (Aspirin) 325 Mg Tablet, 325 MG PO .5 tab d, (Reported) Last Taken: on 09/11/16 0800 Cholecalciferol (Vitamin D3) (Vitamin D-3) 2, 000 Unit Capsule, 2,000 UNIT PO DAILY, (Reported) Last Taken: on 09/11/16 0800 Enalapril Maleate (Enalapril Maleate) 20 Mg Tablet, 20 MG PO BID, (Reported) Last Taken: on 09/24/16 0900 Fish Oil/[place]-3 Fatty Acids (Fish Oil 1,000 Mg Capsule) 1 Cap Capsule, 1 CAP PO DAILY, (Reported) Last Taken: on 09/11/16 0800 Lutein (Lutein) 10 Mg Tablet, 10 MG PO DAILY, ( Reported) Last Taken: on 09/11/16 0800 Niacin (Niacin) 500 Mg Capsule.sa, 500 MG PO DAILY, (Reported) Last Taken: on 09/11/16 0800 Currently on Beta Scotty: No Medical/Surgical History Anesthesia PMH: Reports: *Hypertension, Anesthesia Reactions (NO KNOWN AIRWAY ISSUES; NAUSEA), Arthritis (IN RIGHT HAND), CVA/Stroke/TIA (20 yrs ago - no deficits), Denies: *Angina, *Diabetes, *Dyspnea, *RI, Asthma, CHF, COPD, Cancer , Clotting Problems, Deep Vein Thrombosis, Glaucoma, Hepatitis, Hiatal Hernia, Malignant Hyperthermia, Pneumonia, Reflux, Renal Disease, Seizures, Sleep Apnea , Thyroid Disease, Tuberculosis Smoking Status: Never smoker Has pt. smoked today?: No Use Chewing Tobacco?: No Second Hand Exposure: No Substance Use Type: does not use Substance last used: unknown Alcohol Intake: rarely Last Drink: unknown Past Surgical History Orthopedic Surgeries: Abdominal Surgeries: Yes - REPAIR OF INGUINAL HERNIA - ONE A CHILD; ONE 4 YRS AGO Genitourinary Surgeries: Cardiac Surgeries: Endocrine Surgeries: Reproductive Surgeries: Yes - CIRCUMCISION & VASECTOMY Neurological Surgeries: Ear Surgeries: Nose Surgeries: Throat Surgeries: Other Surgeries: Yes - COLONOSCOPY Anesthesia Adverse Reactions: FOUND nausea and vomiting Family Hx of Anesthesia Advers: none Hx of Motion Sickness: Yes Pertinent Findings EKG Rhythm: Sinus Rhythm Physical Exam Respiratory: Bilat breath sounds equal, Lungs clear Cardiovascular: FOUND Regular rate, rhythm, FOUND No murmur Airway Assessment Mallampati Score: II TMD: 3 Fingerbreadths Neck Extension: Good Overall Assessment: No Airway Concerns ASA: 2 Plan Anesthesia Plan: TIVA Discussion Discussed risks/options/alternatives of anesthesia and questions answered. Patient consents. Nursing pain assessment noted. Present: Spouse Attestation Statement Prior to the delivery of any anesthetic medication, I examined the patient, developed the plan, obtained the patient's consent and discussed the risk and benefits of the procedure with the patient/guardian. VICKY SEVERINO CRNA September 25, 2016 11:15
[2016-09-25] MEDS ORDERED: LIDOCAINE 1% (10mg/ml) 2ml SDV ONE (11:21)
[2016-09-25] MEDS ORDERED: PROPOFOL 500mg 50 ML IV ONE (11:21)
[2016-09-25] MEDS ORDERED: ONDANSETRON 4mg/2ml INJECTION ONE (11:21)
[2016-09-25 11:43] VITALS: BP 104/60; PULSE 59; RESP 12; TEMP 98; O2SAT 96
[2016-09-25 11:55] VITALS: BP 96/59; PULSE 56; RESP 20; O2SAT 96
[2016-09-25 12:10] VITALS: BP 110/74; PULSE 55; RESP 19; O2SAT 100
--- NOTE | 2016-09-25 12:17 | ANESPO ---
Post-Op Note Date 09/25/16 Time: 12:15 Status Pt Participated in Evaluation: Pt participated in person Vital Signs Date Time Temp Pulse Resp B/P Pulse Ox O2 Delivery O2 Flow Rate FiO2 09/25/16 11:55 56 20 96/59 96 Room Air 09/25/16 11:43 98.0 Respiratory Function: Airway patent, Regular respirations Cardiovascular Function: Regular pulse Mental Status: Alert/oriented Pain Level Intensity: 0 Hydration: Taking po fluids Complications during Recovery None apparent Post-Anesthesia Notes pt. agustin. well Follow-Up Instructions Instructions Per Surgeon Additional Information none VICKY SEVERINO CRNA September 25, 2016 12:17
--- NOTE | 2016-09-25 19:14 | OPNOTEF ---
DATE OF SERVICE 09/25/2016 SURGEON Yobani Baidr MD PREOPERATIVE DIAGNOSIS Family history of colon cancer. POSTOPERATIVE DIAGNOSIS Family history of colon cancer with a first-degree relative. Normal colonoscopy. PROCEDURE Colonoscopy. ANESTHESIA TIVA BRIEF HISTORY/INDICATIONS Mr. Watson is a 66-year-old gentleman who presents to [facility] today to undergo a colonoscopy as a result of his family history for colon cancer in a first-degree relative, his mother. It has been more than five years since his last endoscopic evaluation. For completeness please refer to notes included in the patient's chart. FINDINGS Upon colonoscopy there was no evidence for angiodysplastic lesions, polyps, diverticula or daniela malignancies. DESCRIPTION OF PROCEDURE After informed consent was obtained, the patient was brought to the endoscopy suite and placed on the table in left lateral decubitus position. The patient subsequently underwent total intravenous anesthesia by the nurse trial court justice per my request. A formal timeout was then performed. Next, a digital rectal examination was performed. Normal sphincter tone. No rectal masses were appreciated. An Olympus colonoscope was inserted in the anus and advanced with the lumen of the colon under direct visualization at all times until the cecum was ascertained. Triangulation of the tenia coli, ileocecal valve and appendiceal lumen were all visualized. The scope was then slowly withdrawn, again while maintaining visualization of the lumen at all times. As stated above, the entire colon was without evidence for angiodysplastic lesions, polyps, diverticula or daniela malignancies. The scope continued to be withdrawn until it was brought forth back into the rectal vault. A J-maneuver was then performed. No worrisome perianal pathology was noted. The scope was allowed to straighten and was withdrawn through the anal verge. The patient tolerated the procedure without difficulty and was sent back to the preop area in stable condition. Secondary to the absence of findings upon this colonoscopy in conjunction with his family history of colon cancer in a first-degree relative, I would recommend that he undergo a colonoscopy at a five-year interval. ISAMAR
== END 2016-09-25 12:18 | disposition home or self-care (01) ==
LOC: SCU 08:18
PROVIDERS: ATTEND Surgery
DX: Z12.11 Encounter for screening for malignant neoplasm of colon (principal); Z80.0 Family history of malignant neoplasm of digestive organs
CPT/HCPCS: 45378; J2405; J2704; J7120